=== PATIENT | female | born 1955 | race Caucasian/White ===

== ENCOUNTER 2018-02-27 07:30 | Inpatient (IN) | payer BC ==
[2018-03-06] MEDS ORDERED: Acetaminophen 500 MG Tab PO ONE (06:00)
[2018-03-06] MEDS ORDERED: Gabapentin 300 MG Cap PO ONE (06:00)
[2018-03-06] MEDS ORDERED: Scopolamine 1.5 MG Transdermal Patch TOP SCH (06:00)
[2018-03-06] MEDS ORDERED: Ondansetron 4 MG/2 ML SDV ONE (06:37)
[2018-03-06] MEDS ORDERED: Dexamethasone 4 MG/ML SDV ONE (06:37)
[2018-03-06] MEDS ORDERED: Rocuronium 50 MG/5 ML Vial ONE ×2 (06:37→08:49)
[2018-03-06] MEDS ORDERED: fentaNYL 250 MCG/5 ML SDV ONE ×2 (06:37→08:19)
[2018-03-06] MEDS ORDERED: Propofol 200 MG/20 ML SDV ONE (06:37)
[2018-03-06] MEDS ORDERED: Glycopyrrolate 0.2 MG/ML 5 ML MDV ONE (06:37)
[2018-03-06] MEDS ORDERED: Neostigmine Methylsulfate 1 MG/ML 5 ML Syringe ONE (06:37)
[2018-03-06] MEDS ORDERED: Lactated Ringers 1,000 ML IV SCH (06:45)
[2018-03-06] MEDS ORDERED: Ketamine 500 MG/5 ML MDV IV SCH (07:30)
[2018-03-06] MEDS ORDERED: Clindamycin Phosphate 900 MG in Sodium Chloride 0.9% 100 ML IV ONE (07:30)
[2018-03-06] MEDS ORDERED: Naloxone 0.4 MG/ML SDV IVPUSH PRN (07:45)
[2018-03-06] MEDS: HYDROmorphone/Normal Saline 15 MG/30 ML PCA IV PRN (07:58)
[2018-03-06] MEDS ORDERED: Meropenem 500 MG SDV ONE (08:20)
[2018-03-06] MEDS: Tranexamic Acid 880 MG in Sodium Chloride 0.9% 50 ML IV SCH ×2 (08:40→10:48)
[2018-03-06] MEDS ORDERED: Linezolid 200 MG/100 ML Bag IRR ONE (08:48)
[2018-03-06] MEDS ORDERED: Lactated Ringers 1,000 ML ONE (09:39)
--- NOTE | 2018-03-06 11:24 | OR ---
DATE OF PROCEDURE: 03/06/2018 PREOPERATIVE DIAGNOSES: 1. Lumbar spondylolisthesis at L4-5. 2. Lumbar spondylosis at L4-5. 3. Lumbar right foraminal stenosis at L4-5. POSTOPERATIVE DIAGNOSES: 1. Lumbar spondylolisthesis at L4-5. 2. Lumbar spondylosis at L4-5. 3. Lumbar right foraminal stenosis at L4-5. PROCEDURES: 1. Anterior lumbar interbody fusion at L4-5. 2. Segmental instrumentation, anteriorly, at L4-5. 3. Allograft placement at L4-5. 4. Insertion of interbody spacer at L4-5. CO-SURGEON: Deo Albarran MD. FLUIDS: Lactated Ringer's solution. ESTIMATED BLOOD LOSS: 150 mL. COMPLICATIONS: None. SPECIMEN: None. DISCHARGE DISPOSITION: Stable to PACU. INDICATION: The patient was seen preoperatively in the clinic. She had failed nonoperative treatment. Preoperative imaging confirmed the above-mentioned diagnosis. Risks and benefits of the procedure were explained to the patient and informed consent was obtained. DESCRIPTION OF PROCEDURE: The patient was seen preoperatively by myself, the Anesthesia staff, as well as Dr. Deo Albarran in the preoperative holding area, where the operative site was marked. She was brought to the operative suite by the Anesthesia staff, where general anesthesia was administered. She was placed onto a flat Raymond table. All extremities were found to be well padded. The patient had neuromonitoring leads placed and were normal at baseline. A sterile Roblero catheter was placed. The fluoroscopy unit was draped sterilely. The patient was then prepped and draped in the sterile manner. Time-out was called identifying the correct patient, the correct procedure, the correct site, and that antibiotics had been begun within the appropriate period of time. Please see Dr. Deo Albarran's note for exposure. After exposure had been obtained and level was verified on lateral fluoroscopy, the anterior annulus was removed using Bovie electrocautery as well as a deep 15 blade. A Knutson was used to insert around the vertebral endplates and then most of the disk was removed en bloc with pituitaries. I then used straight large angle and small-angle curettes as well as a #6 Kerrison to remove the remainder of the anulus of the disk. I then used sequential spacers from 9 to 11 to 13 in the disk space, removed any extra disk material. We then inserted a 13 25 x 31 and then a 15 25 x 31 trial. This appeared to be in good position on AP and lateral fluoroscopy. We then irrigated. Then, I inserted a Globus Signify allograft on the lateral portions of the disk space and then posteriorly and then inserted our final Globus Magnify-S 25 x 31 14-17 mm, 15-degree spacer. I then expanded this under direct visualization with fluoroscopy. This appeared to be in good position with good expansion. We then all tapped and placed a three 5.5 x 25 mm variable-angle screws through the implant. I then took final films. This showed it to be in good position. Please see Dr. Deo Albarran's note for closure. Delfino Albarran DO /[id number]
[2018-03-06] MEDS ORDERED: Glucagon,Human Recombinant 1 MG Vial IM PRN (12:04)
[2018-03-06] MEDS ORDERED: 50% Dextrose in Water 50 ML Syringe IVPUSH PRN (12:04)
[2018-03-06] MEDS ORDERED: Glucose Gel 15 GM in 37.5 GM Tube PO PRN (12:04)
[2018-03-06] MEDS ORDERED: hydrOXYzine HCl 100 MG/2 ML SDV IM PRN (12:47)
[2018-03-06] MEDS ORDERED: hydrOXYzine HCl 25 MG Tab PO PRN (12:47)
[2018-03-06] MEDS ORDERED: Metoclopramide 10 MG/2 ML SDV IVPUSH PRN (12:48)
[2018-03-06] MEDS ORDERED: Ondansetron 4 MG/2 ML SDV IVPUSH PRN (12:48)
[2018-03-06] MEDS ORDERED: diphenhydrAMINE 50 MG/ML SDV IVPUSH PRN (12:50)
[2018-03-06] MEDS ORDERED: Cyclobenzaprine 10 MG Tab PO PRN (12:55)
[2018-03-06] MEDS ORDERED: Albuterol/Ipratropium 3.0-0.5 MG/3 ML Neb Soln INH PRN (12:58)
[2018-03-06] MEDS ORDERED: ALPRAZolam 0.5 MG Tab PO PRN (12:59)
[2018-03-06] MEDS: Nicotine 21 MG/24 Hr Patch TRDERM SCH (14:22)
[2018-03-06] MEDS: Acetaminophen 500 MG Tab PO SCH ×2 (14:23→19:23)
[2018-03-06] MEDS: Gabapentin 300 MG Cap PO SCH (14:23)
[2018-03-06] MEDS: SCOPOLAMINE PATCH CHECK TOP SCH ×2 (14:32→18:14)
[2018-03-06] MEDS: Clindamycin Phosphate 900 MG in Sodium Chloride 0.9% 100 ML IV SCH ×2 (14:33→22:09)
[2018-03-06] MEDS: Insulin Aspart 100 Units/ML 3 ML Pen SUBCUT PRN ×2 (16:35→22:08)
[2018-03-06] MEDS: MVI, Adult with Vitamin K 10 ML, Thiamine 200 MG, Chromium/Copper/Mang/Selen/Zn 1 ML in... IV SCH ×4 (16:41)
[2018-03-06] MEDS: Pantoprazole 40 MG Vial IV SCH (16:48)
[2018-03-06] MEDS: Albuterol/Ipratropium 3.0-0.5 MG/3 ML Neb Soln INH SCH ×2 (17:49→20:22)
[2018-03-06] MEDS: Metoprolol Tartrate 50 MG Tab PO SCH (20:22)
[2018-03-06] MEDS: Gabapentin 400 MG Cap PO SCH (20:25)
[2018-03-06] MEDS: Dextrose 5%-Lactated Ringers 1,000 ML IV SCH (23:24)
[2018-03-07] MEDS: Acetaminophen 500 MG Tab PO SCH ×4 (02:02→20:25)
[2018-03-07] MEDS: Insulin Aspart 100 Units/ML 3 ML Pen SUBCUT PRN ×3 (04:43→22:35)
[2018-03-07] MEDS: Dextrose 5%-Lactated Ringers 1,000 ML IV SCH (05:42)
[2018-03-07] MEDS: HYDROmorphone/Normal Saline 15 MG/30 ML PCA IV PRN (05:44)
[2018-03-07] MEDS: Clindamycin Phosphate 900 MG in Sodium Chloride 0.9% 100 ML IV SCH (06:22)
[2018-03-07] MEDS: Albuterol/Ipratropium 3.0-0.5 MG/3 ML Neb Soln INH SCH ×4 (07:53→20:46)
[2018-03-07] MEDS: glipiZIDE 5 MG Tab PO SCH (07:53)
[2018-03-07] MEDS: Nicotine 21 MG/24 Hr Patch TRDERM SCH (08:43)
[2018-03-07] MEDS: Metoprolol Tartrate 50 MG Tab PO SCH ×2 (08:44→20:29)
[2018-03-07] MEDS: Aspirin 81 MG Tab.EC PO SCH (08:45)
[2018-03-07] MEDS: Losartan 50 MG Tab PO SCH (08:45)
[2018-03-07] MEDS: Enoxaparin 40 MG/0.4 ML Syringe SUBCUT SCH (08:45)
[2018-03-07] MEDS: amLODIPine 10 MG Tab PO SCH (08:46)
[2018-03-07] MEDS: SCOPOLAMINE PATCH CHECK TOP SCH ×2 (08:46)
[2018-03-07] MEDS: Gabapentin 300 MG Cap PO SCH ×2 (08:46→15:23)
[2018-03-07] MEDS ORDERED: Dextrose 5%-Lactated Ringers 1,000 ML IV SCH (10:00)
--- NOTE | 2018-03-07 10:36 | PCM.PN ---
- General Info Date of Service: 03/07/18 Functional Status: Reports: Pain Controlled, Tolerating Diet, Ambulating - Review of Systems General: Reports: No Symptoms HEENT: Reports: No Symptoms Pulmonary: Reports: No Symptoms Cardiovascular: Reports: No Symptoms Gastrointestinal: Reports: Abdominal Pain Genitourinary: Reports: No Symptoms Musculoskeletal: Reports: Back Pain Skin: Reports: No Symptoms Neurological: Reports: No Symptoms Psychiatric: Reports: No Symptoms - Patient Data Vitals - Most Recent: Last Vital Signs Temp 96.5 F 03/07/18 07:16 Pulse 71 03/07/18 08:44 Resp 16 03/07/18 07:16 BP 114/48 L 03/07/18 08:46 Pulse Ox 94 L 03/07/18 07:59 Weight - Most Recent: 188 lb I&O - Last 24 Hours: Intake & Output 03/06/18 03/07/18 03/07/18 22:59 06:59 14:59 Intake Total 2764 1658 Output Total 300 630 600 Balance 2464 1028 -600 Lab Results Last 24 Hours: Laboratory Results - last 24 hr 03/07/18 03/07/18 Range/Units 04:31 04:31 WBC 13.7 H (4.5-11.0) K/uL RBC 3.94 (3.30-5.50) M/uL Hgb 11.7 L (12.0-15.0) g/dL Hct 36.6 (36.0-48.0) % MCV 93 (80-98) fL MCH 30 (27-31) pg MCHC 32 (32-36) % Plt Count 268 (150-400) K/uL Sodium 141 (140-148) mmol/L Potassium 3.8 (3.6-5.2) mmol/L Chloride 104 (100-108) mmol/L Carbon Dioxide 30 (21-32) mmol/L Anion Gap 7.5 (5.0-14.0) mmol/L BUN 14 (7-18) mg/dL Creatinine 1.0 (0.6-1.0) mg/dL Est Cr Clr Drug Dosing 44.02 mL/min Estimated GFR (MDRD) 56 L (>60) Glucose 164 H (74-106) mg/dL Calcium 8.2 L (8.5-10.1) mg/dL Phosphorus 3.9 (2.5-4.9) mg/dL Magnesium 1.9 (1.8-2.4) mg/dL Total Bilirubin 0.3 (0.2-1.0) mg/dL AST 19 (15-37) U/L ALT 35 (12-78) U/L Alkaline Phosphatase 72 (46-116) U/L NT-Pro-B Natriuret Pep 48 (5-125) pg/mL Total Protein 5.9 L (6.4-8.2) g/dL Albumin 2.9 L (3.4-5.0) g/dL Globulin 3.0 (2.3-3.5) g/dL Albumin/Globulin Ratio 1.0 L (1.2-2.2) Med Orders - Current: Current Medications Acetaminophen (Tylenol Extra Strength) 1,000 mg PO Q6H [facility] Last Admin: 03/07/18 07:53 Dose: 1,000 mg Albuterol/Ipratropium (Duoneb 3.0-0.5 Mg/3 Ml) 3 ml INH QIDRT [facility] Last Admin: 03/07/18 07:53 Dose: Not Given Albuterol/Ipratropium (Duoneb 3.0-0.5 Mg/3 Ml) 3 ml INH ASDIRECTED PRN PRN Reason: BREATHING Alprazolam (Xanax) 0.5 mg PO BEDTIME PRN PRN Reason: SLEEP Amlodipine Besylate (Norvasc) 10 mg PO DAILY [facility] Last Admin: 03/07/18 08:46 Dose: 10 mg Aspirin (Halfprin) 81 mg PO DAILY [facility] Last Admin: 03/07/18 08:45 Dose: 81 mg Bisacodyl (Dulcolax) 10 mg PO BID [facility] Cyclobenzaprine HCl (Flexeril) 10 mg PO Q6H PRN PRN Reason: MUSCLE SPASM Dextrose (Glutose 15) 15 gm PO ASDIRECTED PRN PRN Reason: HYPOGLYCEMIA Dextrose/Water (Dextrose 50% In Water) 50 ml IVPUSH ASDIRECTED PRN PRN Reason: HYPOGLYCEMIA Diphenhydramine HCl (Benadryl) 25 - 50 mg IVPUSH Q4H PRN PRN Reason: ITCHING Enoxaparin Sodium (Lovenox) 40 mg SUBCUT DAILY [facility] Last Admin: 03/07/18 08:45 Dose: 40 mg Gabapentin (Neurontin) 300 mg PO BID@0900,1400 [facility] Last Admin: 03/07/18 08:46 Dose: 300 mg Gabapentin (Neurontin) 1,200 mg PO BEDTIME [facility] Last Admin: 03/06/18 20:25 Dose: 1,200 mg Glipizide (Glucotrol) 5 mg PO DAILY@0730 [facility] Last Admin: 03/07/18 07:53 Dose: Not Given Glucagon (Glucagen) 1 mg IM ASDIRECTED PRN PRN Reason: HYPOGLYCEMIA Hydromorphone HCl (Dilaudid Principal Biostatistician 15 Mg In Ns 30 Ml) 0 mg IV ASDIRECTED PRN; Protocol PRN Reason: Pain Last Admin: 03/07/18 05:44 Dose: 15 mg Hydroxyzine HCl (Vistaril) 100 mg IM Q4H PRN PRN Reason: PAIN Hydroxyzine HCl (Atarax) 100 mg PO Q4H PRN PRN Reason: PAIN Multivitamins/Minerals 10 ml/Thiamine HCl 200 mg/ Chromium/Copper/Manganese/ Seleni/Zn 1 ml/ Dextrose/Lactated Ringer's 1,013 mls @ 150 mls/hr IV DAILY@ 1600 [facility] Last Admin: 03/06/18 16:41 Dose: 150 mls/hr Dextrose/Lactated Ringer's (Dextrose 5%-Lactated Ringers) 1,000 mls @ 100 mls/ hr IV ASDIRECTED [facility] Insulin Aspart (Novolog) 0 unit SUBCUT Q6H PRN; Protocol PRN Reason: LOW CORRECTIONAL DOSE Last Admin: 03/07/18 04:43 Dose: 1 units Losartan Potassium (Cozaar) 50 mg PO DAILY [facility] Last Admin: 03/07/18 08:45 Dose: 50 mg Metaxalone (Skelaxin) 800 mg PO TID [facility] Last Admin: 03/07/18 08:49 Dose: 800 mg Metoclopramide HCl (Reglan) 10 mg IVPUSH Q6H PRN PRN Reason: NAUSEA Metoprolol Tartrate (Lopressor) 100 mg PO BID [facility] Last Admin: 03/07/18 08:44 Dose: 100 mg Naloxone HCl (Narcan) 0.1 mg IVPUSH Q2M PRN PRN Reason: Respiratory Distress Nicotine (Habitrol) 21 mg TRDERM DAILY [facility] Last Admin: 03/07/18 08:43 Dose: 21 mg Scopolamine Patch (Check) 1 each TOP DAILY [facility] Last Admin: 03/07/18 08:46 Dose: Not Given Scopolamine Patch (Check) 1 each TOP DAILY [facility] Stop: 03/08/18 09:01 Last Admin: 03/07/18 08:46 Dose: Not Given Ondansetron HCl (Zofran) 4 mg IVPUSH Q4H PRN PRN Reason: NAUSEA Pantoprazole Sodium (Protonix Iv) 40 mg IV Q24H [facility] Last Admin: 03/06/18 16:48 Dose: 40 mg Scopolamine (Transderm-Scop) 1.5 mg TOP Q72H [facility] Stop: 03/09/18 04:00 Last Admin: 03/06/18 06:01 Dose: 1.5 mg Senna/Docusate Sodium (Senna Plus) 2 tab PO BID KEVIN Discontinued Medications Acetaminophen (Tylenol Extra Strength) 1,000 mg PO ONETIME ONE Stop: 03/06/18 06:01 Last Admin: 03/06/18 06:00 Dose: 1,000 mg Dexamethasone (Dexamethasone) Confirm Administered Dose 4 mg .ROUTE .STK-MED ONE Stop: 03/06/18 06:38 Fentanyl (Sublimaze) Confirm Administered Dose 250 mcg .ROUTE .STK-MED ONE Stop: 03/06/18 06:38 Fentanyl (Sublimaze) Confirm Administered Dose 250 mcg .ROUTE .STK-MED ONE Stop: 03/06/18 08:20 Gabapentin (Neurontin) 300 mg PO ONETIME ONE Stop: 03/06/18 06:01 Last Admin: 03/06/18 06:00 Dose: 300 mg Glycopyrrolate (Robinul) Confirm Administered Dose 1 mg .ROUTE .STK-MED ONE Stop: 03/06/18 06:38 Clindamycin Phosphate 900 mg/ (Sodium Chloride) 106 mls @ 200 mls/hr IV ONETIME ONE Stop: 03/06/18 08:01 Last Admin: 03/06/18 08:39 Dose: 200 mls/hr Lactated Ringer's (Ringers, Lactated) 1,000 mls @ 25 mls/hr IV ASDIRECTED [facility] Last Admin: 03/06/18 06:01 Dose: 25 mls/hr Tranexamic Acid 880 mg/ Sodium (Chloride) 58.8 mls @ 235.2 mls/hr IV Q3H [facility] Stop: 03/06/18 10:44 Last Admin: 03/06/18 10:48 Dose: 235.2 mls/hr Ketamine HCl 100 mg/ Sodium (Chloride) 100 mls @ 14.37 mls/hr IV ASDIRECTED [facility] Propofol (Diprivan 100 Ml) Confirm Administered Dose 100 mls @ as directed .ROUTE .STK-MED ONE Stop: 03/06/18 06:40 Linezolid (Zyvox) Confirm Administered Dose 300 mls @ as directed .ROUTE .STK- MED ONE Stop: 03/06/18 06:48 Lactated Ringer's (Ringers, Lactated) Confirm Administered Dose 1,000 mls @ as directed .ROUTE .STK-MED ONE Stop: 03/06/18 09:40 Dextrose/Lactated Ringer's (Dextrose 5%-Lactated Ringers) 1,000 mls @ 150 mls/ hr IV ASDIRECTED [facility] Last Admin: 03/07/18 05:42 Dose: 150 mls/hr Clindamycin Phosphate 900 mg/ (Sodium Chloride) 106 mls @ 212 mls/hr IV Q8H [facility] Stop: 03/07/18 06:59 Last Admin: 03/07/18 06:22 Dose: 212 mls/hr Ketamine HCl (Ketalar) 24 mg IV ASDIRECTED [facility] Linezolid (Zyvox) 200 mg IRR .STK-MED ONE Stop: 03/06/18 08:49 Last Admin: 03/06/18 08:48 Dose: 200 mg Meropenem (Merrem) Confirm Administered Dose 500 mg .ROUTE .STK-MED ONE Stop: 03/06/18 08:21 Last Admin: 03/06/18 08:47 Dose: 500 mg Miscellaneous Information (Remove Patch) 1 ea TRDERM ONETIME ONE Stop: 03/07/18 09:01 Last Admin: 03/07/18 08:47 Dose: Not Given Neostigmine Methylsulfate (Neostigmine) Confirm Administered Dose 5 mg .ROUTE .STK-MED ONE Stop: 03/06/18 06:38 Ondansetron HCl (Zofran) Confirm Administered Dose 4 mg .ROUTE .STK-MED ONE Stop: 03/06/18 06:38 Propofol (Diprivan 20 Ml) Confirm Administered Dose 200 mg .ROUTE .STK-MED ONE Stop: 03/06/18 06:38 Rocuronium [place] (Zemuron) Confirm Administered Dose 50 mg .ROUTE .STK-MED ONE Stop: 03/06/18 06:38 Rocuronium [place] (Zemuron) Confirm Administered Dose 50 mg .ROUTE .STK-MED ONE Stop: 03/06/18 08:50 - Exam General: Alert, Oriented, Cooperative, Mild Distress HEENT: Pupils Equal, Pupils Reactive, EOMI, Mucous Membr. Moist/Natalia Neck: Supple, Trachea Midline Lungs: Normal Respiratory Effort GI/Abdominal Exam: No Distention, Tender Extremities: Normal Inspection, Normal Range of Motion Skin: Warm, Dry, Intact Wound/Incisions: Healing Well, Dressing Dry and Intact, No Drainage Neurological: No New Focal Deficit Psy/Mental Status: Alert, Normal Affect, Normal Mood - Problem List & Annotations (1) Discogenic syndrome, lumbar SNOMED Code(s): 255288919 Code(s): M51.26 - OTHER INTERVERTEBRAL DISC DISPLACEMENT, LUMBAR REGION Status: Acute Current Visit: No (2) Lumbar foraminal stenosis SNOMED Code(s): 338540503663, 845727908211 Code(s): M99.83 - OTHER BIOMECHANICAL LESIONS OF LUMBAR REGION Status: Acute Current Visit: No (3) Lumbar radiculopathy SNOMED Code(s): 995444602 Code(s): M54.16 - RADICULOPATHY, LUMBAR REGION Status: Acute Current Visit: No (4) Spondylolisthesis, lumbar region SNOMED Code(s): 894623998194572 Code(s): M43.16 - SPONDYLOLISTHESIS, LUMBAR REGION Status: Acute Current Visit: No - Problem List Review Problem List Initiated/Reviewed/Updated: Yes - Plan Plan:: Assessment: Postoperative day #1 status post anterior lumbar interbody fusion. Plan: The patient states that her right lower extremity radiculopathy that she had prior to surgery is gone. She has decreased back pain and inability. She is ambulating the halls. Her pain is well controlled. The majority of her pain is from the abdominal incision. We'll see how she does the rest of the day and will discharge per Dr. Evens Albarran.
[2018-03-07] MEDS: Bisacodyl 5 MG Tab PO SCH ×2 (12:47→20:25)
[2018-03-07] MEDS: Pantoprazole 40 MG Vial IV SCH (17:12)
[2018-03-07] MEDS: MVI, Adult with Vitamin K 10 ML, Thiamine 200 MG, Chromium/Copper/Mang/Selen/Zn 1 ML in... IV SCH ×4 (17:14)
[2018-03-07] MEDS: Gabapentin 400 MG Cap PO SCH (20:26)
[2018-03-08] MEDS: Acetaminophen 500 MG Tab PO SCH ×2 (01:13→07:17)
[2018-03-08] MEDS: glipiZIDE 5 MG Tab PO SCH ×2 (07:17→17:09)
[2018-03-08] MEDS: Insulin Aspart 100 Units/ML 3 ML Pen SUBCUT PRN ×2 (07:21→21:12)
--- NOTE | 2018-03-08 08:35 | PN ---
DATE OF SERVICE: 03/07/2018 The patient has been afebrile with stable vital signs. Pain control appears to be reasonably good. We will begin a regular diet today and begin some bowel stimulation. We will leave the POLICE AND FIRE DISPATCHER going for today and likely switching over tomorrow to oral pain medication, and may discharge on Monday. PT seeing the patient today. Her blood sugars are running in the 150 to 160 range, and we will continue the present diabetic management. Deo Albarran MD Job #: [id number]
[2018-03-08] MEDS: Albuterol/Ipratropium 3.0-0.5 MG/3 ML Neb Soln INH SCH ×4 (09:07→21:19)
--- NOTE | 2018-03-08 10:20 | PN ---
DATE OF SERVICE: 03/08/2018 SUBJECTIVE: Lou is postoperative day #2. She reports her pain is controlled. Vital signs have been stable with a temp max of 99.3. She does have 88% oximetry when sleeping, so 2 L of O2 is required. Blood sugars have been elevated at 220 and 150. REVIEW OF SYSTEMS: Remainder of review of systems negative for any pertinent positives and negatives. OBJECTIVE: GENERAL: Lou Funez is a 62-year-old female. VITAL SIGNS: TPR 96.4, 86, 16, and blood pressure 148/61. HEENT: Negative. NECK: Supple. HEART: Regular rate and rhythm. LUNGS: Clear. ABDOMEN: Dressings dry and intact. Abdominal binder is on. EXTREMITIES: Without peripheral edema. ASSESSMENT: 1. Anterior lumbar interbody fusion at L4-5. 2. Segmental instrumentation anteriorly at L4-5. 3. Allograft placement at L4-5. 4. Insertion of interbody spacer at L4-5 for lumbar spondylolisthesis at L4-5, lumbar spondylosis at L4-5, and lumbar right foraminal stenosis at L4-5. Date of surgery, 03/06/2018. Surgeons, Delfino Albarran D.O., and Deo Albarran MD. PLAN: 1. Teach the patient to do ERICA drain care. Strip, empty, measure, and record ERICA drain 4 times a day. 2. Discontinue MANAGER OF PROGRAM and continuous pulse ox. 3. Whitt 5/325 mg 1 to 2 every 4 hours p.r.n. pain. 4. Saline lock IV. 5. Glipizide 5 mg p.o. b.i.d. 6. Good pulmonary toilet. 7. We will evaluate p.r.n. or in a.m. Rosa Stallworth PA-C /[id number]
[2018-03-08] MEDS: Enoxaparin 40 MG/0.4 ML Syringe SUBCUT SCH (10:26)
[2018-03-08] MEDS: Nicotine 21 MG/24 Hr Patch TRDERM SCH (10:27)
[2018-03-08] MEDS: amLODIPine 10 MG Tab PO SCH (10:27)
[2018-03-08] MEDS: Bisacodyl 5 MG Tab PO SCH ×2 (10:28→21:09)
[2018-03-08] MEDS: Losartan 50 MG Tab PO SCH (10:28)
[2018-03-08] MEDS: Aspirin 81 MG Tab.EC PO SCH (10:28)
[2018-03-08] MEDS: Metoprolol Tartrate 50 MG Tab PO SCH ×2 (10:29→21:11)
[2018-03-08] MEDS: Gabapentin 300 MG Cap PO SCH ×2 (10:29→15:16)
[2018-03-08] MEDS: SCOPOLAMINE PATCH CHECK TOP SCH ×2 (10:30)
[2018-03-08] MEDS: Acetaminophen/HYDROcodone 325-5 MG Tab PO PRN ×3 (10:37→19:37)
[2018-03-08] MEDS ORDERED: Pantoprazole 40 MG Tab.CR PO SCH (16:30)
[2018-03-08] MEDS: Gabapentin 400 MG Cap PO SCH (21:11)
[2018-03-09] MEDS: Acetaminophen/HYDROcodone 325-5 MG Tab PO PRN ×3 (01:01→09:26)
[2018-03-09] MEDS: Gabapentin 300 MG Cap PO SCH (08:02)
[2018-03-09] MEDS: Metoprolol Tartrate 50 MG Tab PO SCH (08:02)
[2018-03-09] MEDS: Aspirin 81 MG Tab.EC PO SCH (08:02)
[2018-03-09] MEDS: glipiZIDE 5 MG Tab PO SCH (08:03)
[2018-03-09] MEDS: Bisacodyl 5 MG Tab PO SCH (08:04)
[2018-03-09] MEDS: amLODIPine 10 MG Tab PO SCH (08:04)
[2018-03-09] MEDS: Losartan 50 MG Tab PO SCH (08:05)
[2018-03-09] MEDS: Nicotine 21 MG/24 Hr Patch TRDERM SCH (08:05)
[2018-03-09] MEDS: SCOPOLAMINE PATCH CHECK TOP SCH (08:10)
--- NOTE | 2018-03-09 11:11 | DISCH ---
ADMISSION DIAGNOSES: 1. Spondylolisthesis, lumbar region. 2. Lumbar radiculopathy. 3. Discogenic syndrome, lumbar. 4. Lumbar foraminal stenosis. 5. Depression. 6. Hypothyroidism. 7. Diabetes type 2. 8. Hypertension. DISCHARGE DIAGNOSES: Anterior lumbar interbody fusion at L4-L5, segmental instrumentation anteriorly at L4-L5, allograft placement at L4-L5, and insertion of interbody spacer at L4- L5, for lumbar spondylolisthesis at L4-L5, lumbar spondylolysis at L4-L5, and lumbar right foraminal stenosis at L4-L5, anterior approach. Date of surgery, 03/06/2018. Surgeon is Delfino Albarran D.O. and Deo Albarran M.D. HISTORY: Lou Funez is a 62-year-old female with back pain. After preoperative evaluation, discussion of possible risks and possible complications, she wished to proceed with surgical procedure. HOSPITAL COURSE: Lou had her surgery on 03/06/2018. She had no operative complications. On postop day #1, she started physical therapy. Diet was advanced. Her pain was controlled. On postop day #2, she was taught to do ERICA drain care, changed to oral pain medication, and on postop day #3, she was able to be discharged to home without any complications. PHYSICAL EXAMINATION: GENERAL: Lou Funez is a 62-year-old female. VITAL SIGNS: Height is 5 feet 1 inch, weight is 187 pounds. TPR is 96.3, 72, 16. Blood pressure is 137/62. HEENT: Negative. NECK: Supple. HEART: Regular rate and rhythm. LUNGS: Clear. ABDOMEN: Incision looks good. Francois intact. She has a midline ERICA drain and it has been draining a small amount of light pink serosanguineous drainage. Abdominal binder has been on. EXTREMITIES: Without peripheral edema. Diabetes type 2: Blood sugars have been slightly elevated. She has been receiving glipizide 5 mg twice daily. She states her primary care provider likes her blood sugars around 140. Blood sugars have been running 145 to 181, she did have one 220. DISPOSITION: Discharged to home. CONDITION: Stable and improving. FOLLOWUP: Followup appointment with Deo Albarran M.D., on 03/14/2018 at 11:00 a.m., and she is to follow up with Delfino Albarran D.O., on April, at 11:00 a.m. HOME MEDICATIONS: [place] 5/325 mg 1 to 2 tablets every 4 hours p.r.n. pain, #40. She is to resume her home medications of, 1. Alprazolam 0.5 mg oral at bedtime. 2. Ventolin 1 puff every 4 hours p.r.n. wheezing. 3. Proventil 1 vial inhalation 4 times a day p.r.n. wheezing. 4. Aspirin 81 mg oral daily. 5. Biotin 1 mg oral daily. 6. Calcium citrate 1 daily. 7. Vitamin D3, 1000 international units oral daily. 8. Premarin 1.25 mg oral daily. 9. Flaxseed oil 1000 mg oral daily. 10.Neurontin 1200 mg oral at bedtime. 11.Neurontin 900 mg oral twice daily. 12.Hydrochlorothiazide 12.5 mg oral daily. 13.Indomethacin 50 mg oral 3 times a day p.r.n. pain. 14.Cozaar 50 mg oral daily. 15.Magnesium 300 mg oral daily. 16.Metaxalone 800 mg 3 times a day p.r.n. pain. 17.Lopressor 100 mg twice daily. 18.Nicotine 1 patch daily. 19.B6, 25 mg oral daily. 20.Amlodipine besylate 10 mg oral daily. 21.Glipizide 5 mg 1 to 2 times daily depending on blood sugars per primary care provider's orders. DISCHARGE INSTRUCTIONS: 1. Diet after discharge: Diabetic diet. Drink 8 to 10 glasses of water a day. 2. Activity as tolerated. No lifting greater than 10 pounds for 6 weeks and as instructed by Physical Therapy and Dr. Delfino Albarran. 3. Driving: Do not drive on pain medication. 4. May shower. 5. Notify provider if any fever or increased pain. 6. Keep site clean and dry. 7. Empty, strip, measure, and record ERICA drain 4 times a day, bring record of drainage to clinic appointment. 8. Wear abdominal binder for 6 weeks as tolerated. 9. Wear back brace as directed by Dr. Delfino Albarran. 10.Use incentive spirometer 10 times every hour while awake x1 week.
--- NOTE | 2018-03-14 10:17 | OR ---
DATE OF PROCEDURE: 03/06/2018 PREOPERATIVE DIAGNOSIS: Stenosis at L4-L5. POSTOPERATIVE DIAGNOSES: 1. Stenosis at L4-L5. 2. Laceration to left common iliac vein secondary to inflammatory adherence to underlying retroperitoneal structures. OPERATIVE PROCEDURES: 1. Anterior lumbar interspinal fusion, L4-L5 (88925-24). 2. Lateral repair of left common iliac vein (41461). ANESTHESIA: General. CO-SURGEON: Delfino Albarran DO. INDICATION FOR PROCEDURE: This 62-year-old female is presenting with progressive worsening symptoms related to stenosis at the L4-L5 level. After preoperative evaluation by Dr. Delfino Albarran, the decision was made to proceed with an anterior lumbar interspinal fusion. General surgical role in terms of exposure of this and management of any avascular issues were reviewed with the patient preoperatively. Potential risks including bleeding, infection, injury to the structures such as ureter or the vena cava, aorta or iliac vessels potentially resulting in life-threatening ischemia or bleeding as well as the possibility of cardiopulmonary, septic, or hemorrhagic complications leading to were discussed, and the patient wishes to proceed. DETAILS OF PROCEDURE: The patient was taken to the operating room and placed in a supine position with a roll underneath the left knee to offload tension on the psoas muscle. Roblero catheter was inserted, and the abdomen was prepped and draped. A left lower paramedian incision was then made and carried down through the subcutaneous tissue down to the midportion of the rectus sheath. The rectus musculature was then freed up from the sheath and retracting it medially, and the fatty tissue had been dissected with a combination of cautery and blunt dissection. The psoas muscle was identified. This then allowed primary blunt dissection into the area anterior to the distal aorta, vena cava, and left iliac vessels. As these were sequentially dissected free, the left ureter was confirmed to be mobilized up with the retractors as well. At this point, the left iliac vein was identified. As one dissected this from the point of the bifurcation of the left iliac vein proximally, the iliolumbar vein was identified. This was encircled, clamped and cut, and suture ligated bilaterally with 4-0 Vicryl stitch. As one approached more into the area of the vein overlying the vertebral bodies, there appeared to be quite dense inflammatory response of this. This was carefully dissected free. There was a laceration of the left common iliac vein which occurred, and this was suture ligated with a lateral repair using 5-0 Waite-Garry stitch. This then allowed further mobilization along with the periosteum over the vertebral body in that area. At that point, a satisfactory exposure of the L4-L5 interspace was achieved. The retractors were then put in place and docking pins were placed to minimize chances of the vessels emerging into the operative field during the course of the orthopedic phase of the procedure. Once this was accomplished and the L4-L5 interspace exposure was confirmed radiologically, Dr. Delfino Albarran then proceeded with the anterior lumbar interspinal fusion. Once that was completed, the area was inspected. The retractors were eventually freed up. Some Floseal was placed along the area of the venous repair, and the area was irrigated with a combination of meropenem and Zyvox-containing saline solution. The anterior rectus sheath was then approximated with a #2 Vicryl stitch. The subcutaneous tissue was quite thick and, given this, a 10-[place] round Raymond-Schultz drain was placed superior to the main incision and over this, some 2 layers of 3-0 Vicryl stitch were placed, and the skin with luis. The drain was fixed with 4-0 Vicryl stitch. The patient was taken to the recovery room in a satisfactory condition. There were no specific complications that occurred. The estimated blood loss was 250 mL. Deo Albarran MD /[id number]
== END 2018-03-09 11:11 | disposition home or self-care (01) | DRG 304 ==
LOC: JP.SDSSCHI 03-06 05:08 → JP.SDS 03-06 05:08 → EDSTATUS 03-06 09:00 → JP.MS 03-06 10:15
PROVIDERS: ADMIT Surgery; ATTEND Orthopaedic Surgery
PROC: 4A11X4G Monitoring of Peripheral Nervous Electrical Activity, Intraoperative, External Approach (ICD-10-PCS; principal; 2018-03-06)
PROC: 0SG00A0 Fusion of Lumbar Vertebral Joint with Interbody Fusion Device, Anterior Approach, Anterior Column, Open Approach (ICD-10-PCS; principal; 2018-03-06)
PROC: 0SB20ZZ Excision of Lumbar Vertebral Disc, Open Approach (ICD-10-PCS; principal; 2018-03-06)
DX: M47.26 Other spondylosis with radiculopathy, lumbar region (principal); M51.16 Intervertebral disc disorders with radiculopathy, lumbar region; M43.16 Spondylolisthesis, lumbar region; M48.061 Spinal stenosis, lumbar region without neurogenic claudication; F32.9 Major depressive disorder, single episode, unspecified; E03.9 Hypothyroidism, unspecified; E11.9 Type 2 diabetes mellitus without complications; I10 Essential (primary) hypertension; G47.9 Sleep disorder, unspecified; K58.9 Irritable bowel syndrome, unspecified; M19.90 Unspecified osteoarthritis, unspecified site; E78.5 Hyperlipidemia, unspecified; F17.210 Nicotine dependence, cigarettes, uncomplicated; Z79.84 Long term (current) use of oral hypoglycemic drugs; Z79.82 Long term (current) use of aspirin; Z79.899 Other long term (current) drug therapy; Z90.710 Acquired absence of both cervix and uterus; Z88.1 Allergy status to other antibiotic agents; Z88.8 Allergy status to other drugs, medicaments and biological substances
CPT/HCPCS: 36415; 76001; 80053; 82962; 83735; 83880; 84100; 85027; 86850; 86900; 86901; 86920; 86922; 94640; 94762; 97116-GP; 97162-GP; 97530-GP; A9270-GY; C1713; C9113; J1100; J1170; J1650; J2020; J2185; J2405; J2704; J2710; J3010; J3411; J3490; J7030; J7042; J7050; J7120; J7620; S0077